=== PATIENT | female | born 1995 | race Two or more races ===

== ENCOUNTER 2024-02-11 16:50 | Emergency (ER) | payer SELFPAY ==
[~2024-02-11] VITALS: Ht 165.1 cm; Wt 92.7 kg
[2024-02-11 16:50] VITALS: BP 163/97; PULSE 112; RESP 16; O2SAT 96
[2024-02-11 18:03] LABS: Urine Bacteria None Seen /hpf (None Seen)
[2024-02-11 18:22] LABS: Urine Blood Negative /uL (Negative); Urine Clarity Clear (Clear); Urine Color Light-Yellow (Yellow); Urine Mucus FEW (None Seen); Urine Protein, UAD Negative (Negative); Urine Specific Gravity 1.024 (1.001-1.035); Urine Urobilinogen Normal (Negative); Urine WBC <1 /hpf (0 - 5); Urine pH 5.5 (5.0-9.0)
== END 2024-02-11 21:40 | disposition left against medical advice (07) ==
LOC: ER 16:50
DX: R53.1 Weakness (principal); R06.02 Shortness of breath; R51.9 Headache, unspecified
CPT/HCPCS: 71046; 81001